=== PATIENT | male | born 1975 | race African-American/Black ===

== ENCOUNTER 2016-11-22 07:34 | Emergency (ER) | payer SELFPAY ==
[~2016-11-22] VITALS: Ht 177.8 cm; Wt 81.0 kg
[~2016-11-22 07:34] MED LIST: PENI500T PO; TYLE3 PO
[2016-11-22 07:35] VITALS: BP 137/81; PULSE 65; RESP 16; TEMP 99.2; O2SAT 100
[2016-11-22] MEDS ORDERED: LIDOCAINE HCL 1% 50 ML VIAL XX ONE (07:45)
[2016-11-22] MEDS ORDERED: cefTRIAXone 250 MG VIAL IM ONE (07:45)
[2016-11-22] MEDS ORDERED: SODIUM CHLORIDE 0.9% FLUSH 10 ML FLUSH IVF PRN (07:45)
[2016-11-22] MEDS ORDERED: AZITHROMYCIN PWD FOR SUSP 1 GM PACKET PO ONE (07:45)
--- NOTE | 2016-11-22 07:51 | PD ---
HPI Chief Complaint: Complaint Time Seen by Provider: 07:40 Travel History International Travel<30 days: No Contact w/Intl Traveler<30days: No Traveled to known affect area: No History of Present Illness HPI The patient is a 41-year-old [place] male who presents to the emergency department for 4 day history of dysuria and penile discharge. The patient is sexually active, states his girlfriend has no similar symptoms. He does complain of initially clear and now purulent penile drainage with dysuria. He denies any testicular pain or swelling. He denies any fever, chills, sweats, nausea, vomiting, or abdominal pain. He denies any rash or lesions over the penile area. Symptoms are mild to moderate, there are no alleviating or exacerbating factors. [facility] Past Medical History Medical History: Denies Significant Hx Past Surgical History Surgical History: No Previous Surgery Social History Tobacco Use: Yes Allergies-Medications (Allergen,Severity, Reaction): Coded Allergies: No Known Allergies (Verified , 11/22/16) Reported Meds & Prescriptions Reported Meds & Active Scripts Active No Active Prescriptions or Reported Medications Review of Systems General / Constitutional: No: Fever Gastrointestinal: No: Nausea, Vomiting, Abdominal Pain Genitourinary: Positive: Dysuria, Other (penile discharge) Musculoskeletal: No: Arthralgias Skin: No Rash Physical Exam Narrative GENERAL: Awake, alert, very pleasant 41-year-old male who appears his stated age and is in no acute respiratory distress. SKIN: Focused skin assessment warm/dry. HEAD: Atraumatic. Normocephalic. GASTROINTESTINAL: Abdomen soft, non-tender, nondistended. No rebound tenderness. Back: No CVA tenderness. Genitourinary: Circumcised phallus. Clear drainage at the meatus. Both testicles are descended, no tenderness over the epididymis. MUSCULOSKELETAL: No obvious deformities. No clubbing. No cyanosis. No edema. NEUROLOGICAL: Awake and alert. No obvious cranial nerve deficits. Motor grossly within normal limits. Normal speech. PSYCHIATRIC: Appropriate mood and affect; insight and judgment normal. Data Data Last Documented VS Vital Signs Date Time Temp Pulse Resp B/P (MAP) Pulse Ox O2 Delivery O2 Flow Rate FiO2 11/22/16 08:02 64 16 11/22/16 07:35 99.2 137/81 (99) 100 Orders Orders Urinalysis - C+S If Indicated (11/22/16 07:40) Gc And Chlamydia Pcr (11/22/16 07:40) Azithromycin Powd Pack (Zithromax Powd P (11/22/16 07:45) Ceftriaxone Inj (Rocephin Inj) (11/22/16 07:45) Sodium Chloride 0.9% Flush (Ns Flush) (11/22/16 07:45) Lidocaine 1% Inj (50 Ml) (Xylocaine 1% I (11/22/16 07:45) Urine Culture (11/22/16 07:45) Labs Laboratory Tests Test 11/22/16 07:45 Urine Collection Type CLEAN CATCH Urine Color YELLOW Urine Turbidity CLOUDY Urine pH 6.0 Urine Specific Bertram 1.020 Urine Protein TRACE mg/dL Urine Glucose (UA) NEG mg/dL Urine Ketones NEG mg/dL Urine Occult Blood MOD Urine Nitrite NEG Urine Bilirubin NEG Urine Leukocyte Esterase LARGE Urine RBC 0-3 /hpf Urine WBC 50-99 /hpf Microscopic Urinalysis Comment CULTURE INDICATED MDM Medical Decision Making Medical Screen Exam Complete: Yes Emergency Medical Condition: Yes Medical Record Reviewed: Yes Interpretation(s) Laboratory Tests Test 11/22/16 07:45 Urine Collection Type CLEAN CATCH Urine Color YELLOW Urine Turbidity CLOUDY Urine pH 6.0 Urine Specific Bertram 1.020 Urine Protein TRACE mg/dL Urine Glucose (UA) NEG mg/dL Urine Ketones NEG mg/dL Urine Occult Blood MOD Urine Nitrite NEG Urine Bilirubin NEG Urine Leukocyte Esterase LARGE Urine RBC 0-3 /hpf Urine WBC 50-99 /hpf Microscopic Urinalysis Comment CULTURE INDICATED Differential Diagnosis Differential diagnosis includes urethritis, UTI, epididymitis, gonorrhea, Chlamydia, Trichomonas. Narrative Course A UA was sent to lab and gonorrhea/chlamydia PCR was ordered from UA. The patient was treated with Rocephin 250 mg IM and Zithromax 1 g by mouth. UA is positive with 50-99 wbc's, patient will be treated with Cipro. He is advised to follow-up with a primary physician and return if symptoms worsen or progress. Diagnosis Primary Impression: Urethritis Additional Impression: UTI (urinary tract infection) Qualified Codes: N30.00 - Acute cystitis without hematuria Patient Instructions: General Instructions Additional Instructions: Medications as directed. Follow-up with your primary physician. Return if symptoms worsen or progress. Med/Other Pt SpecificInfo: Prescription(s) given Scripts Ciprofloxacin (Cipro) 500 Mg Tab 500 MG PO BID for Infection for 7 Days, #14 TAB 0 Refills Prov: Bret Lanza MD 11/22/16 Disposition: 01 DISCHARGE HOME Condition: Stable Bret Lanza MD Nov 22, 2016 07:51
[2016-11-22 07:55] LABS: BLOOD, URINE MOD (NEG); GLUCOSE,URINE NEG (NEG); KETONE, URINE NEG (NEG); NITRITE,URINE NEG (NEG)
[2016-11-22 07:57] LABS: METHOD OF COLLECTION CLEAN CATCH; URINE COLOR YELLOW (YELLW/STRAW)
[2016-11-22 07:59] LABS: COMMENT (UR) CULTURE INDICATED; CULTURE IF INDICATED CULTURE INDICATED; RBC, URINE 0-3 /hpf (0-3)
[2016-11-22] MEDS ORDERED: CIPR-9 PO (08:27)
[2016-11-22 13:38] LABS: CHLAMYDIA PCR DETECTED (NOT DETECT); NEISSERIA PCR DETECTED (NOT DETECT)
== END 2016-11-22 09:38 | disposition home or self-care (01) ==
LOC: PHED 07:34
DX: N34.2 Other urethritis (principal); N30.00 Acute cystitis without hematuria
CPT/HCPCS: 81001; 87086; 87491; 87591; 96372; 99284; J0696

== ENCOUNTER 2016-12-30 03:44 | Emergency (ER) | payer OTHER ==
[~2016-12-30] VITALS: Ht 177.8 cm; Wt 75.0 kg
[~2016-12-30 03:44] MED LIST changes: +CIPR-9 PO; -PENI500T PO; -TYLE3 PO
[2016-12-30 03:48] VITALS: BP 121/73; PULSE 87; RESP 18; TEMP 98.1; O2SAT 100
[2016-12-30 03:56] VITALS: O2SAT 100
[2016-12-30] MEDS ORDERED: SODIUM CHLORIDE 0.9% FLUSH 10 ML FLUSH IV FLUSH PRN (04:00)
[2016-12-30] MEDS ORDERED: TETANUS/DIPHTHERIA TOXOID ADULT 0.5 ML VIAL IM ONE (04:00)
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
--- NOTE | 2016-12-30 04:45 | RADRPT ---
EXAM DATE/TIME: 12/30/2016 03:54 [facility] COMPARISON: No previous studies available for comparison. INDICATIONS : Left knee pain. MEDICAL HISTORY : None. SURGICAL HISTORY : None. ENCOUNTER: Initial ACUITY: 1 day PAIN SCORE: 5/10 LOCATION: Left knee. FINDINGS: Four view examination of the left knee demonstrates no evidence of fracture or dislocation. Bony min eralization is normal. The articular surfaces are intact. The suprapatellar soft tissues have a nor mal configuration. CONCLUSION: No acute fracture. Dirk Corrales MD on December 30, 2016 at 4:43 Board Certified Radiologist. This report was verified electronically.
[2016-12-30 04:54] VITALS: BP 120/80
--- NOTE | 2016-12-31 07:46 | EKG ---
Date Performed: 12/30/2016 Time Performed: 04:03:20 PTAGE: 41 years EKG: Sinus rhythm REPOLARIZATION ABNORMALITY CONSIDER BORDERLINE ECG NO PREVIOUS TRACING DOCTOR: Phan Corrales Interpretating Date/Time 12/31/2016 07:45:59
== END 2016-12-30 05:38 ==
LOC: PHED 03:44
DX: T75.4XXA Electrocution, initial encounter (principal); S80.02XA Contusion of left knee, initial encounter; S80.212A Abrasion, left knee, initial encounter; S51.832A Puncture wound without foreign body of left forearm, initial encounter; F17.210 Nicotine dependence, cigarettes, uncomplicated; W86.8XXA Exposure to other electric current, initial encounter; Y35.893A Legal intervention involving other specified means, suspect injured, initial encounter
CPT/HCPCS: 73564; 93005